=== PATIENT | male | born 1990 | race Caucasian/White ===

== ENCOUNTER 2016-11-29 18:54 | Emergency (ER) | payer OTHER ==
[~2016-11-29] VITALS: Ht 185.4 cm; Wt 77.1 kg
--- NOTE | 2016-11-29 19:14 | NUR ---
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
[2016-11-29] MEDS ORDERED: TDAP DIPH,PERTUSS,TET VAC/PF 0.5 ML DISP.SYRIN IM ONE ×2 (19:15→19:39)
[2016-11-29] MEDS ORDERED: IBUPROFEN 600 MG TABLET PO ONE (19:15)
[2016-11-29] MEDS ORDERED: HYDROCODONE/APAP 5-325MG TABLET PO ONE (19:15)
[2016-11-29] MEDS ORDERED: CYCLOBENZAPRINE HCL 10 MG TABLET PO ONE (19:15)
--- NOTE | 2016-11-29 19:15 | NUR ---
Assumed care of pt at this time. Dr. Lemos at bedside.
[2016-11-29] MEDS ORDERED: CYCLOBENZAPRINE HCL 10 MG TABLET ONE (19:38)
[2016-11-29] MEDS ORDERED: HYDROCODONE/APAP 5-325MG TABLET ONE (19:38)
[2016-11-29] MEDS ORDERED: IBUPROFEN 600 MG TABLET ONE (19:38)
--- NOTE | 2016-11-29 20:00 | NUR ---
Pt stable for discharge per Dr. Lemos. Pt given ACI. Pt verbalized understanding of dc instructions. Pt ambulated out of ER with steady gait and ride home.
[2016-11-29 20:13] VITALS: BP 117/71
== END 2016-11-29 20:00 | disposition home or self-care (01) ==
LOC: ER 18:55
DX: T24.001A Burn of unspecified degree of unspecified site of right lower limb, except ankle and foot, initial encounter (principal); S16.1XXA Strain of muscle, fascia and tendon at neck level, initial encounter; V43.52XA Car driver injured in collision with other type car in traffic accident, initial encounter; Y93.89 Activity, other specified; Y92.413 State road as the place of occurrence of the external cause; Y99.9 Unspecified external cause status
CPT/HCPCS: 90715; A4663